=== PATIENT | male | born 1960 | race Caucasian/White ===

== ENCOUNTER → 2021-06-23 16:21 | Outpatient (BNVA) | payer OTHER, SELFPAY | PROVIDERS: PCP Family Medicine; Visit Provider Nurse Practitioner | DX: Z12.11 Encounter for screening for malignant neoplasm of colon (principal); G47.33 Obstructive sleep apnea (adult) (pediatric); Z98.890 Other specified postprocedural states; Z83.71 Family history of colonic polyps | CPT/HCPCS: 99202 ==

== ENCOUNTER 2022-10-04 06:52 | Day surgery (SDC) | payer OTHER, SELFPAY ==
[2022-10-04 07:35] VITALS: BMI 34.9
--- NOTE | 2022-10-04 08:07 | HO.ANESPROP2 ---
HPI - Anesthesia Eval Consult details Narrative: 62 M for colonoscopy [facility] Active Problems Active Problems: All Active Problems (Updated 10/01/22 @ 12:00 by Veronica Henderson RN) Obesity (Acute) High cholesterol (Acute) WEST (obstructive sleep apnea) (Acute) Diabetes (Acute) History of alcohol dependence (Acute) HTN (hypertension), benign (Acute) Allergic rhinitis (Acute) Cataracts, bilateral (Acute) GERD (gastroesophageal reflux disease) (Acute) Generalized anxiety disorder (Acute) Colon cancer screening (Acute) Family history of polyps in the colon (Acute) Past Medical History Medical History Allergic rhinitis Anxiety Cataract Depression Diabetes Elevated cholesterol GERD (gastroesophageal reflux disease) History of alcohol dependence HTN (hypertension) Hx of retinal detachment Obesity Scrotal hernia Sleep apnea Functional capacity: independent ambulation Family History Family history of problems with anesthesia: No Surgical History Surgical History Hx of cataract surgery Hx of detached retina repair Hx of inguinal hernia repair Hx of tonsillectomy History of Problems with Anesthesia: No Social History Social History Are you a primary transitional care liaison to a significant other at home: No Do you presently have visiting nurse or other home services: No Patient Tobacco Use Status: Former Tobacco user Meds Allergies Allergy/AdvReac Type Severity Reaction Status Date / Time [id number] Reductase Allergy Intermediate LETHARGY Unverified 06/23/21 16:26 Inhibitor [[id number] REDUCTASE INHIBITOR] Home Medications Medication Instructions Recorded Confirmed Last Taken Type buspirone 10 mg tablet 10 mg PO TID 06/23/21 06/23/21 Unknown History ezetimibe 10 mg tablet 10 mg PO DAILY 06/23/21 06/23/21 Unknown History sertraline 100 mg tablet (Zoloft) 100 mg PO DAILY 06/23/21 06/23/21 Unknown History sertraline 50 mg tablet (Zoloft) 50 mg PO DAILY 06/23/21 06/23/21 Unknown History Exam Exam Date and Time: October 04, 2022 0807 Height,Weight and Vital Signs: Height 6 ft Weight 116.573 kg Pertinent Lab Results Pertinent Lab Results: Laboratory Tests 10/04/22 07:16 POC Glucose 125 H Airway Mallampati Class: III Loose/Missing/Broken Teeth: Yes Assessment and Plan Assessment Anesthesia Assessment: Anesthesia Plan Discussed and Chart Reviewed Final Anesthetic Review Family History of Problems with Anesthesia: No History of Problems with Anesthesia: No NPO: Yes ASA Class: II Final Preanesthetic Review: Meds/Allgs Chart Reviewed, Consent Obtained/Reviewed and Anes Risks/Benef Reviewed Patient Risk: Intermediate Procedure Risk: Intermediate Anesthetic Plan Anesthetic Plan: MAC: Disposition: Standard PACU
--- NOTE | 2022-10-04 08:40 | MHC.SHP ---
Pre-Procedural Eval Section A Date of Service: 10/04/22 Section B Chief Complaint: screening Details of Present Illness: FH of colon polyps Relevant Family History (Specify if Yes): Yes Relevant Social History: None Present Medications: see Short Stay Collaborative assessment Medical History: Significant History (Allergic rhinitis Anxiety Cataract Depression Diabetes Elevated cholesterol GERD (gastroesophageal reflux disease) History of alcohol dependence HTN (hypertension) Hx of retinal detachment Obesity Scrotal hernia Sleep apnea) History of Previous Operations: Relevant previous surgery/procedure and date(s) (Hx of cataract surgery Hx of detached retina repair Hx of inguinal hernia repair Hx of tonsillectomy) Allergies: Allergies Allergy/AdvReac Type Severity Reaction Status Date / Time [id number]-XTI-InG Reductase Allergy Intermediate LETHARGY Unverified 06/23/21 16:26 Inhibitor [[id number] REDUCTASE INHIBITOR] Review of Systems Sugical H&P ROS: Negative: Constitution, Cardiovascular, Respiratory, Neurological, Psychiatric, Hem-Onc, Allergic/Immunologic, Gastrointestinal, Genitourinary, Musculoskeletal, Integumentary, Endocrine and Eyes/Ears/Nose/Throat Exam Surgical H&P Exam: Normal: HEENT, Normal: Heart, Normal: Lungs, Normal: Extremities, Normal: Abdomen, Normal: Skin and Normal: Neurological Plan Diagnosis/Plan: Unchanged I have reviewed the history and physical and performed a pertinent physical examination on my patient. No changes have occurred unless specified. Time Spent With Patient Time: Total time managing care of this patient today ____ minutes.
--- NOTE | 2022-10-04 08:57 | W.PM.OPN ---
Operative Note Operative Note Date of Service: 10/04/22 Narrative: Operative Information Procedure Description: Colonoscopy Indication: screening Anesthesia: MAC COLONOSCOPY Instrument: Olympus variable stiffness pediatric scope 190L Colonoscopy Monitoring: Vital signs and clinical assessment, continuous EKG monitoring, Pulse oximetry, Carbon Dioxide monitoring and blood pressure monitoring were done throughout the procedure. Colon withdrawal time was 10 minutes. Procedure: The patient was placed in the left lateral decubitis position and pre-procedure medications were administered. After a digital rectal examination of the ano-rectum, the video colonoscope was inserted into the rectum and advanced through the colon to the cecum/TI. The colonoscope was slowly withdrawn in a retrograde panoramic fashion and the colon mucosa was carefully examined including a retroflexed view of the rectum. Findings and interventions are described below. Procedure Difficulty: moderate due to looping Findings: Terminal Ileum-not intubated Right sided retroflexion was normal Cecum:normal Ascending Colon: normal Transverse Colon -normal Descending Colon:normal Sigmoid Colon: moderate diverticulosis Rectum: Retroflexion with small internal hemorrhoids, grade I Anorectum - normal Colon preparation: [place] Bowel Preparation Scale Right colon; 2 Transverse colon: 2 Left colon; 2 (0 = Unprepared colon segment with mucosa not seen due to solid stool that cannot be cleared. 1 = Portion of mucosa of the colon segment seen, but other areas of the colon segment not well seen due to staining, residual stool and/or opaque liquid. 2 = Minor amount of residual staining, small fragments of stool and/or opaque liquid, but mucosa of colon segment seen well. 3 = Entire mucosa of colon segment seen well with no residual staining, small fragments of stool or opaque liquid) Impression and Post Procedure Diagnosis: internal hemorrhoids diverticular disease Plan: High fiber diet leaflet Avoid straining at stool, epsom salts and sitz bath, anusol supps or cream Repeat Colonoscopy in 5 years due to [facility] of colon polyps or earlier if clinically indicated Above findings were reviewed with the patient and relevant handouts were provided if indicated.
[2022-10-04 09:01] VITALS: BP 117/64; PULSE 63; RESP 16; TEMP 36.1; O2SAT 97
[2022-10-04 09:16] VITALS: BP 136/73; PULSE 57; RESP 16; TEMP 36.4; O2SAT 98
== END 2022-10-04 09:53 | disposition home or self-care (01) ==
PROVIDERS: PCP Family Medicine; Visit Provider Internal Medicine Gastroenterology
PROC: 0DJD8ZZ Inspection of Lower Intestinal Tract, Via Natural or Artificial Opening Endoscopic (ICD-10-PCS; CPT 45378; principal; 2022-10-04 08:30)
DX: Z12.11 Encounter for screening for malignant neoplasm of colon (principal); K57.30 Diverticulosis of large intestine without perforation or abscess without bleeding; K64.0 First degree hemorrhoids; K56.2 Volvulus; Z83.71 Family history of colonic polyps; E11.9 Type 2 diabetes mellitus without complications; I10 Essential (primary) hypertension; G47.33 Obstructive sleep apnea (adult) (pediatric); Z88.8 Allergy status to other drugs, medicaments and biological substances
CPT/HCPCS: G0105; 82947